=== PATIENT | female | born 1970 | race Caucasian/White ===

== ENCOUNTER 2023-07-15 00:39 | Day surgery (SDC) | payer OTHER, SELFPAY ==
[2023-07-11 10:05] VITALS: BMI 31.6
--- NOTE | 2023-07-11 10:15 | PC.NURSE ---
Report to the Outpatient Waiting Room, entrance under the green pavilion located off [facility], at time 9:30 on date 07/15/23. Planned Procedure Time: 11:30. Time changes happen often and if your time is changed the preop area will call you the afternoon before. - You and your visitor will be asked to self-screen and do not enter if you have any COVID symptoms. - A mask is optional within the hospital at this time. Patients may have clear liquids (water, carbonated beverages, clear teas, apple juice) until 3 hours prior to surgery (8:30) with a maximum of 20 ounces. - No food from midnight until time of surgery Take the following medications with a SIP of water the morning of surgery: ANTIBIOTIC (IF STILL TAKING), GABAPENTIN, LAMOTRIGINE, VENLAFAXINE DO NOT STOP ANY OF YOUR OTHER PRESCRIPTION MEDICATIONS PRIOR TO SURGERY ?EXCEPT THE FOLLOWING Medications to discontinue per physician: VITAMINS/SUPPLEMENTS Date to take last dose: 07/11/[address] DYSON REGARDING MELOXICAM Please no make-up, nail st helenian, hairspray, perfume, deodorant, or body powder the day of surgery. No jewelry (including any body piercings) or valuables the day of surgery, leave them at home. Please take a shower or bath the night before, or the morning of, surgery with an antibacterial soap. Wear comfortable, loose fitting clothing. - Jewelry must be removed prior to entering the operating room. Rings and piercings that are not removed may be cut off. - The hospital will not accept responsibility for valuables. - Please leave all valuables, including medications, at home the day of surgery. If you are going home after surgery, a licensed boom truck driver must drive you home. - NO public transportation without another adult if you receive anesthesia. - We recommend that an adult stay with you for 24 hours following discharge. - We also recommend that you do not drive, make important decision, drink alcoholic beverages, or take any drugs that were not prescribed by your health care provider for at least 24 hours after your discharge time. Follow any additional instructions given to you from your surgeon. If you or anyone in your household have experienced Covid symptoms in the past week, please notify your surgeon or the nurse liaison at the phone number below for possible testing. Telephone instructions given to PT - ROMÁN JONES and asked if any additional questions and then verbalized understanding. Patient advised to call surgeon office or pre surgery nurse liaison [phone] if any additional questions.
--- NOTE | 2023-07-14 15:17 | WPDANESEPPF ---
Anes - Initial Pre Proc Eval Procedure: Operation Date: 07/15/23 11:30 Proposed Procedures p Cystoscopy, Left Ureteroscopy, Left Retrograde Pyelogram, Left Stone Extraction, Left Stent Placement, Possible Holmium Laser - Markos Fierro MD Date/Time: 07/14/23 15:17 Surgeon: Markos Fierro MD Pre Op Diagnosis: left ureteral stones Patient Data Age: 53 Gender: F Height: 1.65 m Weight: 86.2 kg Allergies Allergy/AdvReac Type Severity Reaction Status Date / Time codeine Allergy Severe NECK Verified 07/15/23 10:09 TIGHTNESS & HEAD PRESSURE, adhesive tape Allergy Intermediate RASH, Verified 07/15/23 10:09 ITCHING hydrocodone Allergy Mild NAUSEA AND Unverified 07/15/23 10:09 VOMITING morphine Allergy Unknown HALLUCINATI Verified 07/15/23 10:09 ONS Home Medications Medication Instructions Recorded Confirmed Type atorvastatin 40 mg tablet 40 mg PO DAILY 07/11/23 07/15/23 History cephalexin 500 mg capsule 500 mg PO QID 07/11/23 07/15/23 History diphenhydramine 25 2 tablet PO HS 07/11/23 07/15/23 History mg-acetaminophen 500 mg tablet (Tylenol PM Extra Strength) dulaglutide 3 mg/0.5 mL 3 mg subcut WEEKLY 07/11/23 07/15/23 History subcutaneous pen injector (Trulicity) gabapentin 800 mg tablet 800 mg PO QID 07/11/23 07/15/23 History lamotrigine 25 mg tablet 50 mg PO BID 07/11/23 07/15/23 History lisinopril 10 mg tablet 10 mg PO DAILY 07/11/23 07/15/23 History melatonin 5 mg tablet 5 mg PO HS 07/11/23 07/15/23 History meloxicam 15 mg tablet 15 mg PO DAILY 07/11/23 07/15/23 History metformin 500 mg tablet,extended 1,000 mg PO DAILY 07/11/23 07/15/23 History release 24 hr tramadol 50 mg tablet 50 mg PO HS Pain 07/11/23 07/15/23 History venlafaxine 75 mg capsule,extended 75 mg PO DAILY 07/11/23 07/15/23 History release 24 hr Patient hx anesthesia problems: none Family hx anesthesia problems: none Results Review: All pre-operative results and documents have been reviewed as part of the pre-operative evaluation. [facility] Past Medical History Medical History (Updated 07/14/23 @ 15:18 by Leo Newton DO) Diabetes type 2, controlled Hyperlipidemia Hypertension Social History Social History Smoking packs per day: 0.75 Smoking cigarettes per day: 15.0 Years smoked: 39 Smoking pack-years: 29.25 Smoking status: Current every day smoker Tobacco type: cigarettes Alcohol intake: never Substance use: current Substance use type: marijuana Living arrangements: with family Spiritual care concerns: No Anes - Eval Final PreProcedure Day of Procedure 07/14/23 15:17 Patient weight: obese Heart: regular rate and rhythm Lungs: clear to auscultation Airway: Mallampati scale class II Neurological: alert and oriented Last oral intake: >/= 8 hours ASA classification: III Emergent: no Anesthetic plan: proceed Anesthesia type and monitoring: general LMA and standard monitoring Results Review: All pre-operative results and documents have been reviewed as part of the pre-operative evaluation. Informed Consent: The patient's anesthetic plan and its attendant risks and benefits were discussed with the patient/family/POA. Questions were solicited and answers provided to the satisfaction of the patient/family/POA.
[2023-07-15] VITALS (8 sets, daily range): BP systolic 115–151; BP diastolic 62–81; PULSE 68–81; RESP 14–18; TEMP 36.1–37; O2SAT 95–99
--- NOTE | ~2023-07-15 | XR_ITS ---
EXAMINATION: XR retrograde pyelo w/stent LT DATE: 07/15/2023 12:07 INDICATION: Left ureteral stone. TECHNIQUE: 6 intraoperative fluoroscopic views of the abdomen and pelvis were obtained. I was not pre sent. Fluoroscopy exposure time was 14 seconds. COMPARISON: CT abdomen and pelvis 01/19/2013 FINDINGS: Initial images demonstrate a stone in distal left ureter. Additional images demonstrate a l eft-sided retrograde pyelogram with mild hydronephrosis. The final images demonstrate a left internal ureteral stent in expected position. IMPRESSION: 1. Distal left ureteral stone. 2. Left internal ureteral stent in expected position. Reviewed, dictated and finalized at location E. RT SPECIALIST
--- NOTE | 2023-07-15 09:39 | ECG_ITS ---
Measurements Intervals [place] Rate: 73 P: 24 DC: 161 QRS: 10 QRSD: 79 T: 26 QT: 369 QTc: 408 Interpretive Statements SINUS RHYTHM BASELINE ARTIFACT- V5 NORMAL ECG NO PREVIOUS ECG AVAILABLE FOR COMPARISON Electronically Signed On 07-15-2023 9:54:04 IT SUPPORT ANALYST by Phuc Greer D.O.
[2023-07-15] MEDS: LACTATED RINGERS 1,000 ML 30 ML IV CONT (10:00)
[2023-07-15 10:04] LABS: Glucose Point of Care 108 mg/dl (65-105)
--- NOTE | 2023-07-15 10:28 | WPDHPUPDATE1 ---
History and Physical Update Update Date/Time: 07/15/23 10:28 History and Physical has been reviewed, including an updated exam of the patient. There are NO changes in the patient's condition. Risks, benefits, and alternatives have been discussed and questions answered. Patient agrees to proceed with procedure. Proceed with cysto, left retrograde, left ureteroscopy with stone extraction, possible laser, stent placement
[2023-07-15] MEDS: ceFAZolin 2 GM/D5W 50 ML 2 GM/50 ML BAG IVPB (11:39)
--- NOTE | 2023-07-15 12:07 | W.PM.PROC2 ---
Procedure Note - Detailed Date of Procedure 07/15/23 Pre-op Diagnosis left ureteral stone 6 mm Post-op Diagnosis Same Procedure Performed Cystoscopy, left retrograde pyelogram, left ureteroscopy with laser, stone extraction, left ureteral stent placement 4.8 Emirati contour Surgeon Markos Fierro MD Anesthesia General Description of Procedure Patient is taken to the operative suite correctly identified. Once anesthesia was obtained she was placed in dorsal lithotomy position and prepped and draped usual sterile fashion. A 22 Emir[place] scope was inserted the bladder. Sensor wire was placed in left ureteral orifice. I was then able to manipulated past the stone. There were no tumors noted in the bladder. At this point a rigid ureteral scope was inserted into the left orifice and under direct vision we passed and manipulated the wire past the stone. We then used a 200 micron laser fiber to fragment the stone multiple small pieces. These were rib extracted and sent for analysis. Reinspection revealed no residual stones which she does have quite a bit of edema where was impacted. Pyelogram was then performed confirm placement of the stent. 4.8 Emirati contour stent was then placed with the proximal end coiled in the renal pelvis and the distal in the bladder. Bladder was drained. 2% viscous lidocaine was inserted into the urethra patient is taken recovery stable condition. She will follow-up in week's time for stent removal. This completes dictation. Please send a copy of this op note to my office. Estimated Blood Loss 0 Drains Yes Packing No Pathology Yes Complications No immediate complications Condition Stable Disposition PACU
[2023-07-15 13:05] LABS: Glucose Point of Care 129 mg/dl (65-105)
== END 2023-07-15 13:54 | disposition home or self-care (01) ==
PROVIDERS: PCP Nurse Practitioner; Visit Provider Urology
PROC: (CPT 52352; principal; 2023-07-15 11:30)
DX: N20.1 Calculus of ureter (principal); E11.9 Type 2 diabetes mellitus without complications; I10 Essential (primary) hypertension; E78.5 Hyperlipidemia, unspecified; Z79.85 Long-term (current) use of injectable non-insulin antidiabetic drugs; Z79.84 Long term (current) use of oral hypoglycemic drugs; F17.210 Nicotine dependence, cigarettes, uncomplicated; F12.90 Cannabis use, unspecified, uncomplicated; E66.9 Obesity, unspecified; Z68.31 Body mass index [BMI] 31.0-31.9, adult
CPT/HCPCS: 52356; 74420; 82365; 82948; 88300; 93005; C1758; C1769; C2617; J0690; J1100; J2250; J2405; J2704; J3010; J7120; Q9966

== ENCOUNTER 2024-09-29 07:28 | Outpatient (CLI) | payer OTHER, SELFPAY ==
--- NOTE | ~2024-09-29 | US_ITS ---
Limited Abdominal Sonogram: Real-time sonographic imaging of the right upper quadrant was performed. Clinical History: Cirrhosis Findings: The liver is normal echotexture, minimally nodular contour. No mass lesion or biliary dila tation. Liver measures 18.0 cm in length. Main portal vein demonstrates normal direction of flow. The gallbladder is absent, compatible prior cholecystectomy. The common bile duct measures 11 mm. The v isualized pancreas, aorta, and IVC are unremarkable. Right kidney measures 10.0 cm in length. Impression: Hepatomegaly. Minimally nodular contour suggests early cirrhotic change. Correlate clinically. Status post cholecystectomy. Reviewed, dictated and finalized at location . Impression: Hepatomegaly. Minimally nodular contour suggests early cirrhotic change. Correl ate clinically. Status post cholecystectomy.
--- OUTSIDE RECORDS SUMMARY | 2024-09-29 07:32 | XMS_ITS | Clinical Summary ---
Author Organization [facility] [address] [facility] Address [address] [place] [id number] Care Team Providers Care Anodic Operator Name Role Phone Mami Spears NP Primary Care Provider [phone] Adam Mancilla MD Unavailable [phone] Allergies Active Allergy Reactions Criticality Noted Date Comments Hydrocodone-Acetaminophen Vomiting Low 04/01/2012 Morphine Hallucinations Medium 04/01/2012 Medications gabapentin (NEURONTIN) 400 mg capsule 07/18/2020 Active metFORMIN XR (GLUCOPHAGE XR) 500 mg 24 hr tablet Take 1,000 mg by mouth 2 (two) times a day 07/25/2020 Active lisinopriL (PRINIVIL,ZESTRI L) 10 mg tablet Take 10 mg by mouth daily 08/24/2020 Active atorvastatin (LIPITOR) 40 mg tablet Take 40 mg by mouth daily 08/24/2020 Active FLUoxetine (PROzac) 40 mg capsule 09/13/2020 Active meloxicam (MOBIC) 15 mg tablet 09/13/2020 Active aspirin 81 mg enteric coated tablet Take 1 tablet by mouth daily Active Active Problems Problem Noted Date Diagnosed Date Cigarette nicotine dependenc e with nicotine-induced disorder 08/19/2018 Peripheral neuropathy 07/17/2017 Benign essential hypertension 05/23/2015 Hyperlipidemia 07/15/2012 Overview (09/15/2020): Date Onset: 2011 Type 2 diabetes mellitus 04/01/2012 Surgical History Surgery Date Site/Laterality Comments CHOLECYSTECTOMY SECTION LITHOTRIPSY ROTATOR CUFF REPAIR Medical History Medical History Date Comments Hypertension Hyperlipidemia Diabetes mellitus (HCC) Family History Medical History Relation Name Comments Brain Aneurysm Mother Relation Name Status Comments Mother Social History Tobacco Use Types Packs/Day Years Used Date Smoking Tobacco: Every Day AUDIT-C Answer Date Recorded Q1: How often do you have a drink containing alc ohol? 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 Gender Identity Not on file Sexual Orientation Not on file Obstetrics History Last Filed Vital Signs Vital Sign Reading Time Taken Comments Blood Pressure 170/88 09/15/2020 8:03 AM CDT Pulse 76 09/15/2020 8:03 AM CDT Temperature 36.6 C (97.9 F) 09/15/2020 8:03 AM CDT Respiratory Rate - - Oxygen Saturation - - Inhaled Oxygen Concentration - - Weight 98.7 kg (217 lb 11.2 oz) 09/15/2020 8:03 AM CDT Height 165.1 cm (5' 5 ) 09/15/2020 8:03 AM CDT Body Mass Index 36.23 09/15/2020 8:03 AM CDT Plan of Treatment Not on file Insurance CHOICE PLUS CHOICE PLUS Care Teams Anodic Operator Relationship Specialty Start Date End Date Mami Spears NP [address] [place] [address] [place] [address] PCP - General Pediatrics 07/12/20 Adam Mancilla MD [address] [place] [address] Consulting Physician Rheumatology 07/12/20
--- OUTSIDE RECORDS SUMMARY | 2024-09-29 07:32 | XMS_ITS | Referral Summary ---
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
--- OUTSIDE RECORDS SUMMARY | 2024-09-29 07:32 | XMS_ITS | Clinical Summary ---
Author Organization [facility] Address [address] [place] [address] Care Team Providers Care Pest Control Applicator Name Role Phone Winsome Spears Primary Care Provider Unavailabl e Source Comments [facility],non-owned Affiliates and Associated Physician Practices is amultiple site organization consisting of ambulatory clinics and hospital sitesin [place], [place] and [place]. This disclosure is being madepursuant to the Care Everywhere program and may not contain all information available regarding this patient. Last updated 18.[facility] Video Furnace Active Problems Problem Noted Date Diagnosed Date Other cirrhosis of liver 04/20/2024 Social History Tobacco Use Types Packs/Day Years Used Date Smoking Tobacco: Never Assessed Sex and Gender Information Value Date Recorded Sex Assigned at Not on file Gender Identity Not on file Sexual Orientation Not on file Plan of Treatment Health Maintenance Due Date Last Done Comments COLON MONITORING 1968 COLONOSCOPY - COLON CA SCREENING 1968 CT COLONOGRAPHY - COLON CA SCREENING 1968 FIT - COLON CA SCREENING 1968 FLEX SIG - COLON CA SCREENING 1968 PAP SMEAR 1968 HIV SCREENING 1983 DTAP/TDAP/TD VACCINES (1 - Tdap) 1987 HEPATITIS B VACCINE (1 of 3 - 19+ 3-dose series) 1987 PNEUMOCOCCAL VACCINE 50+ (1 of 2 - PCV) 1987 PNEUMOCOCCAL VACCINE (1 of 2 - PCV) 1987 ZOSTER VACCINE (1 of 2) 2018 COVID-19 VACCINE (4 - season) 2024 07/13/2021, 10/23/2020, 10/02/2020 INFLUENZA VACCINE (#1) 2024, 04/19/2020, 04/09/2019, Additional history exists DEPRESSION SCREENING 06/30/2024 COLOGUARD (AGES 45-75) - COLON CA SCREENING 07/22/2025 07/22/2022 Colorectal Cancer Screening 07/22/2025 MAMMOGRAM 02/10/2026 02/11/2024, 01/28, 07/26/2021, Additional history exists LIPID TESTING 08/02/2028 08/02/2023 HEPATITIS C SCREENING Completed 11/20/2023 HIB VACCINE Aged Out No longer eligi ble based on patient's age to complete this topic HPV VACCINE Aged Out No longer eligi ble based on patient's age to complete this topic MENINGOCOCCAL (Group B) VACCINE SHARED DECISION-MAKING Aged Out No longer eligible based on patient's age to complete this topic MENINGOCOCCAL GROUPS A/C/Y/W VACCINE Aged Out No longer eligible based on patient's age to complete this topic Care Teams Pest Control Applicator Relationship Specialty Start Date End Date Winsome Spears PCP - General 04/20/24
--- OUTSIDE RECORDS SUMMARY | 2024-09-29 07:32 | XMS_ITS | Encounter Summary ---
Author Organization [facility] Address [address] [place] [address] Care Team Providers Care Manufacturing Engineer Supervisor Name Role Phone Mami Spears NP Primary Care Provider [phone] Adam Mancilla MD Unavailable Encounter Details Date Type Department Care Team (Late st Contact Info) Description 09/26/2020 Telephone [facility] [address] [place] [address] Ryann Yung RT Social History Tobacco Use Types Packs/Day Years Used Date Smoking Tobacco: Every Day AUDIT-C Answer Date Recorded Q1: How often do you have a drink containing alc ohol? 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
[2024-09-29 09:25] LABS: Hematocrit 50.5 % (37.0-47.0); Hemoglobin 16.1 g/dL (12.0-15.0); Mean Corpuscular HGB Conc 31.9 g/dl (32-36); Mean Corpuscular Hemoglobin 29.4 pg (26-34); Mean Corpuscular Volume 92.3 fl (80-100); Mean Platelet Volume 10.8 fl (7.4-10.4); Platelet Count Result 266 k/mm3 (150-375); Red Blood Count 5.47 M/mm3 (4.2-5.4); Red Cell Distribution Width 14.1 % (11.5-14.5); White Blood Count 10.1 K/mm3 (4.5-10.0)
[2024-09-29 09:37] LABS: Alanine Aminotransferase 28 U/L (6-35); Albumin Level 4.5 g/dL (3.5-5.1); Alkaline Phosphatase 98 U/L (38-126); Anion Gap 10 mmol/L (4-12); Aspartate Amino Transferase 37 U/L (14-36); Bilirubin,Total 0.6 mg/dL (0.2-1.3); Blood Urea Nitrogen 15 mg/dL (7-17); Calcium 9.6 mg/dL (8.4-10.2); Carbon Dioxide 27 mmol/L (22-30); Chloride 104 mmol/L (98-107); Estimated Glomerular Filt Rate > 60; Glucose 111 mg/dL (65-110); Sodium 141 mmol/L (137-145)
[2024-10-01 11:39] LABS: Alpha Fetoprotein Tumor Marker 2.1 ng/mL
== END 2024-09-29 07:29 | disposition home or self-care (01) ==
PROVIDERS: PCP Nurse Practitioner; Visit Provider Internal Medicine Gastroenterology
DX: K74.69 Other cirrhosis of liver (principal); Z90.49 Acquired absence of other specified parts of digestive tract
CPT/HCPCS: 36415; 76705; 80053; 82105; 85027